=== PATIENT | male | born 1980 | race Caucasian/White ===

== ENCOUNTER → 2020-11-05 12:28 | Outpatient (CLI) | payer OTHER, SELFPAY ==
[2020-11-05 14:40] LABS: Volume Semen 6 (1.0-5.0)
[2020-11-05 14:41] LABS: Liquefaction Semen YES (YES); Sperm Count 125 x10^6/mL (20-150); Sperm Morphology 47 %ABNORM (0-30); Sperm Motility 85% % Motile
== END ==
PROVIDERS: Referring Provider Obstetrics & Gynecology; Visit Provider Obstetrics & Gynecology
DX: N46.9 Male infertility, unspecified (principal)
CPT/HCPCS: 89320